=== PATIENT | male | born 1985 | race Two or more races ===

== ENCOUNTER 2019-10-24 01:53 | Emergency (ER) | payer OTHER ==
[2019-10-24 02:44] VITALS: TEMP 98.2; BMI 35.7
[2019-10-24] MEDS ORDERED: SODIUM CHLORIDE 1,000 ML IV STA (03:29)
[2019-10-24] MEDS ORDERED: ACETAMINOPHEN 1000 MG/100 ML VIAL (NON FORMULARY) IVPB ONE (03:30)
[2019-10-24 03:49] LABS: BASO % 0.9 % (0-2.0); EOS % 0.6 % (0-4.5); HEMATOCRIT 40.5 % (35.4-49); HEMOGLOBIN 13.5 GM/dL (11.7-16.9); LYMPH % 24.5 % (8-40); MCH 28.4 pg (25.7-33.7); MCHC 33.3 g/dl (32.0-35.9); MEAN CELL VOLUME 85.2 fl (80-96); MONO % 5.6 % (3.8-10.2); NEUT % 68.4 % (42.8-82.8); PLATELET COUNT 278 K/MM3 (134-434); RBC 4.75 M/mm3 (4.00-5.60); RDW 13.8 % (11.9-15.9); WHITE BLOOD COUNT 12.9 K/mm3 (4.0-10.0)
[2019-10-24] MEDS ORDERED: ACETAMINOPHEN INJECTION 100 ML IVPB ONE (03:49)
--- NOTE | 2019-10-24 03:58 | PDOC ---
History of Present Illness - General Chief Complaint: Pain, Acute Stated Complaint: ANAL PAIN Time Seen by Provider: 10/24/19 02:33 - History of Present Illness Initial Comments: 10/24/19 03:36 Mr. Corona is a 34 yo man with pmhx of HLD, GERD, fatty liver, internal hemorrhoids and "frequent urination" who presents to the ED with 1 day of rectal pain and L sided abdominal pain. Per the patient, he has internal hemorrhoids for several years which occasionally cause him pain however the current pain he feels is much deeper and more painful than his hemorrhoids. He rates the pain as 10/10. He states that it is constant, worse with sitting or laying down and somewhat alleviate by standing. He tried to use a hydrocortisone cream which he uses for his hemorrhoids but this did not help. He also took 2 500mg tylenols which did not relieve his pain. He reports he is passing gas and having frequent small stools, estimates he had 5 today. He states they are soft, do not cause him to strain and at least 1 had bright red blood mixed in. He states that he had an endoscopy and colonoscopy 1yr ago because of his GERD and both of these tests were normal. On ROS he endorses abdominal pain, nausea, dizziness, diaphoresis, chills, bright red blood mixed with his stools and feeling feverish. He denies constipation, diarrhea, hematuria, dysuria, or vomiting. Past History - Past Medical History Allergies/Adverse Reactions: Allergies Allergy/AdvReac Type Severity Reaction Status Date / Time No Known Allergies Allergy Verified 10/24/19 02:44 Home Medications: Ambulatory Orders Ciprofloxacin HCl [Cipro] 500 mg PO BID #19 tablet 10/24/19 Naproxen 500 mg PO BID #20 tablet 10/24/19 metroNIDAZOLE [Flagyl -] 500 mg PO TID #29 tablet 10/24/19 - Psycho Social/Smoking Cessation Hx Smoking History: Never smoked Hx Alcohol Use: Yes Drug/Substance Use Hx: No Review of Systems - Review of Systems Constitutional: Yes: Chills, Diaphoresis. No: Fever, Loss of Appetite, Malaise , Unintentional Wgt. Loss, Unexplained wgt Loss HEENTM: No: Eye Pain, Recent change in vision, Ear Pain, Nose Pain, Throat Pain Respiratory: No: Cough, Orthopnea, Shortness of Breath Cardiac (ROS): Yes: Lightheadedness. No: Chest Pain, Palpitations ABD/GI: Yes: Abd. Pain w/ defecation, Nausea, Rectal Bleeding, Other (rectal pain). No: Constipated, Diarrhea : Yes: Frequency. No: Burning, Dysuria, Hematuria, Urgency Musculoskeletal: No: Back Pain, Joint Pain, Joint Swelling, Muscle Pain Integumentary: No: Bruising, Change in Color, Rash Neurological: No: Headache, Numbness, Tingling Endocrine: No: Excessive Sweating, Flushing, Intolerance to Cold, Intolerance to Heat All Other Systems: Reviewed and Negative *Physical Exam - Vital Signs Last Vital Signs Temp Pulse Resp BP Pulse Ox 98.2 F 68 18 141/87 98 10/24/19 02:00 10/24/19 02:00 10/24/19 02:00 10/24/19 02:00 10/24/19 02:00 - Physical Exam General Appearance: Yes: Nourished, Appropriately Dressed, Obese. No: Apparent Distress HEENT: positive: EOMI, MARLEN, Normal ENT Inspection, Normal Voice Neck: positive: Trachea midline, Supple. negative: Tender Respiratory/Chest: positive: Lungs Clear, Normal Breath Sounds. negative: Respiratory Distress, Accessory Muscle Use, Crackles, Rhonchi, Wheezing Cardiovascular: positive: Regular Rhythm, Regular Rate, S1, S2. negative: Murmur Gastrointestinal/Abdominal: positive: Normal Bowel Sounds, Tender (diffusely tender in all quadrants), Soft. negative: Guarding, Rebound Rectal Exam: positive: normal rectal tone (no external hemrrhoids visible, normal rectal tone, fecolith felt in rectal vault, no masses appreciated) Musculoskeletal: positive: Normal Inspection. negative: CVA Tenderness, Vertebral Tenderness Extremity: positive: Normal Capillary Refill, Normal Inspection, Normal Range of Motion Integumentary: positive: Normal Color, Dry, Warm Neurologic: positive: application integration engineer II-XII NML intact, Fully Oriented, Alert, Normal Mood/ Affect, Normal Response, Motor Strength /5 ED Treatment Course - LABORATORY CBC & Chemistry Diagram: 10/24/19 03:25 10/24/19 03:25 - ADDITIONAL ORDERS Additional order review: Laboratory Results 10/24/19 03:12 Stool Occult Blood Positive Medical Decision Making - Medical Decision Making 10/24/19 03:58 Mr. Corona is a 34 yo man with pmhx of HLD, GERD, fatty liver, internal hemorrhoids and "frequent urination" who presents to the ED with 1 day of rectal pain and L sided abdominal pain. DDx includes hemrrhoids or diverticulitis. Will obtain - CBC - CMP - Lipase - UA - FOBT Will give: - 1L NS - ofirmev for pain 10/24/19 06:11 - Pt's CT scan reviewed, evidence of likely proctitis, no abscess or perforation. Pt denies engaging in anal sex. Pt is otherwise medically stable for discharge home. Will discharge patient with Cipro 500 BID and Flagyl 500 TID for 10 days and instructions to follow up with his PCP and his GI doctor. Discharge - Discharge Information Problems reviewed: Yes Clinical Impression/Diagnosis: Proctitis Condition: Stable Disposition: HOME - Admission No - Additional Discharge Information Prescriptions: Ciprofloxacin HCl [Cipro] 500 mg PO BID #19 tablet metroNIDAZOLE [Flagyl -] 500 mg PO TID #29 tablet Naproxen 500 mg PO BID #20 tablet - Follow up/Referral - Patient Discharge Instructions Additional Instructions: You were in the hospital because you had 1 day of rectal pain. While you were here we did blood work and a CT scan of your abdomen and pelvis. The CT scan revealed you had proctitis, which means inflammation of your rectum. We are sending you home with two antibiotics Ciprofloxacin and Flagyl. You need to take the Ciprofloxacin TWICE per day for TEN days and the Flagyl THREE times per day for TEN days. We are also sending a prescription for Naproxen which you can take TWICE per day for pain. You can also take Tylenol as needed for pain. Sitz baths may also be helpful in relieving your pain. Please follow up with your primary care doctor and your GI doctor within the next week. If you experiencing worsening sx, worsening bleeding, feel weak, dizzy or pass out please return to the hospital immediately. - Post Discharge Activity
[2019-10-24 04:06] LABS: ALBUMIN 4.2 g/dl (3.4-5.0); BILIRUBIN,TOTAL 0.4 mg/dL (0.2-1); BLOOD UREA NITROGEN 6.5 mg/dL (7-18); CALCIUM 9.4 mg/dL (8.5-10.1); CREATININE 0.7 mg/dL (0.55-1.3); POTASSIUM 4.7 mmol/L (3.5-5.1); TOT PROT 7.6 g/dl (6.4-8.2)
--- NOTE | 2019-10-24 04:11 | PDOC ---
Attending Attestation - Resident Resident Name: Daniella Cedillo - ED Attending Attestation I have performed the following: I have examined & evaluated the patient, The case was reviewed & discussed with the resident, I agree w/resident's findings & plan, Exceptions are as noted - HPI HPI: 10/24/19 04:09 34 M with h/o HLD, GERD, fatty liver, hemorrhoids, presenting to ED with 1 day of rectal pain and abdominal cramps. Pt states that he occasionally gets pain from his hemorrhoids but feels like the pain today is deeper. It is worse with sitting and better with standing. Pt used hemorrhoid cream with no relief. Pt notes red streaks in his stool, which is not uncommon for him. Denies any dark tarry stools. Pt also endorses diffuse abdominal cramps. Denies N/V. Denies F/C. - Physicial Exam PE: 10/24/19 04:11 "GENERAL: Awake, alert, and fully oriented, in no acute distress. HEAD: No signs of trauma EYES: PERRLA, EOMI, sclera anicteric, conjunctiva clear ENT: Auricles normal inspection, hearing grossly normal, nares patent, oropharynx clear without exudates. Moist mucosa NECK: Nontender, no stepoffs, Normal ROM, supple, no lymphadenopathy, JVD, or masses LUNGS: Breath sounds equal, clear to auscultation bilaterally. No wheezes, and no crackles HEART: Regular rate and rhythm, normal S1 and S2, no murmurs, rubs or gallops ABDOMEN: Soft, nontender, normoactive bowel sounds. No guarding, no rebound. No masses EXTREMITIES: Normal range of motion, no edema. No clubbing or cyanosis. No cords, erythema, or tenderness NEUROLOGICAL: Cranial nerves II through XII intact. 5/5 strength and sensation in all extremities, Normal speech, normal gait, normal cerebellar function SKIN: Warm, Dry, normal turgor, no rashes or lesions noted. - Medical Decision Making 10/24/19 04:11 34 M with rectal pain and abdominal cramps. - Labs, UA - CTAP 10/24/19 05:[address] shows likely proctitis, no abscess or perf Pt denies engaging in anal sex Will cover with cipro/flagyl Pt is well appearing, with normal vitals. Clinically stable for DC at this time. I discussed the physical exam findings, ancillary test results and final diagnoses with the patient. I answered all of the patient's questions. The patient was satisfied with the care received and felt comfortable with the discharge plan and treatment plan. The patient agrees to follow up with the primary care physician within 24-72 hours.
[2019-10-24] MEDS ORDERED: KETOROLAC TROMETHAMINE 30 MG/1 ML VIAL IVPUSH ONE (06:04)
[2019-10-24] MEDS ORDERED: metroNIDAZOLE 250 MG TABLET PO ONE (06:04)
[2019-10-24] MEDS ORDERED: CIPROFLOXACIN 500 MG TABLET (RESTRICTED TO ID) PO ONE (06:04)
[2019-10-24] MEDS ORDERED: KETOROLAC TROMETHAMINE 30 MG/1 ML VIAL ONE (06:08)
[2019-10-24] MEDS ORDERED: metroNIDAZOLE 250 MG TABLET ONE (06:08)
[2019-10-24 06:21] VITALS: BP 130/72; PULSE 82
== END 2019-10-24 06:29 | disposition home or self-care (01) ==
LOC: JER 01:53
PROC: 3E0337Z Introduction of Electrolytic and Water Balance Substance into Peripheral Vein, Percutaneous Approach (ICD-10-PCS; principal; 2019-10-24)
PROC: 3E0333Z Introduction of Anti-inflammatory into Peripheral Vein, Percutaneous Approach (ICD-10-PCS; 2019-10-24)
PROC: 3E033NZ Introduction of Analgesics, Hypnotics, Sedatives into Peripheral Vein, Percutaneous Approach (ICD-10-PCS; 2019-10-24)
DX: K62.89 Other specified diseases of anus and rectum (principal); K64.8 Other hemorrhoids
CPT/HCPCS: 36415; 74177-TC; 80053; 82272; 83690; 85025; 96361; 96374; 96375; 99282-25; J0131; J7030; Q9967